=== PATIENT | female | born 1975 | race Two or more races ===

== ENCOUNTER 2021-05-22 09:45 | Outpatient (CLI) | payer OTHER | END 2021-05-22 09:50 | disposition home or self-care (01) | LOC: MAMO-SONO 09:45 | PROVIDERS: ATTEND Internal Medicine | DX: N60.02 Solitary cyst of left breast (principal); E04.2 Nontoxic multinodular goiter; Z12.31 Encounter for screening mammogram for malignant neoplasm of breast; E03.8 Other specified hypothyroidism ==

== ENCOUNTER 2023-02-19 19:55 | Emergency (ER) | payer OTHER ==
[~2023-02-19] VITALS: Ht 162.6 cm; Wt 86.2 kg
== END 2023-02-19 23:52 | disposition home or self-care (01) ==
LOC: ER 19:55
DX: J45.901 Unspecified asthma with (acute) exacerbation (principal); Z91.013 Allergy to seafood; Z91.041 Radiographic dye allergy status

== ENCOUNTER 2023-03-20 13:03 | Outpatient (CLI) | payer OTHER | END 2023-03-20 13:25 | disposition home or self-care (01) | LOC: MAMO-SONO 13:03 | DX: R31.9 Hematuria, unspecified (principal); E04.8 Other specified nontoxic goiter; M25.551 Pain in right hip; M17.12 Unilateral primary osteoarthritis, left knee; M25.562 Pain in left knee; Z12.39 Encounter for other screening for malignant neoplasm of breast; Z12.31 Encounter for screening mammogram for malignant neoplasm of breast; N60.39 Fibrosclerosis of unspecified breast ==

== ENCOUNTER → 2024-03-24 15:59 | Outpatient (CLI) | payer OTHER | END | disposition home or self-care (01) | LOC: MAMO-SONO 09:52 | PROVIDERS: ATTEND Student in an Organized Health Care Education/Training Program | DX: E03.9 Hypothyroidism, unspecified (principal); N60.01 Solitary cyst of right breast; N60.02 Solitary cyst of left breast; Z12.31 Encounter for screening mammogram for malignant neoplasm of breast; J45.50 Severe persistent asthma, uncomplicated; J30.9 Allergic rhinitis, unspecified ==

== ENCOUNTER 2025-04-20 10:43 | Outpatient (CLI) | payer OTHER | END 2025-04-20 10:47 | disposition home or self-care (01) | LOC: SONOGRAMA 10:43 | PROVIDERS: ATTEND Internal Medicine Hematology & Oncology | DX: R16.0 Hepatomegaly, not elsewhere classified (principal) ==